=== PATIENT | female | born 1940 | race Caucasian/White ===

== ENCOUNTER 2017-01-26 09:16 | Inpatient (IN) | payer MEDICARE ==
[~2017-01-26] VITALS: Ht 154.9 cm; Wt 34.5 kg
[2017-01-26] MEDS ORDERED: SODIUM CHLORIDE FLUSH 10ML SYR IVF ONE (09:30)
[2017-01-26] MEDS ORDERED: SODIUM CHLORIDE 0.9% 1,000ML IVBOLUS ONE ×2 (09:30→11:30)
[2017-01-26] MEDS ORDERED: ALBUTEROL/IPRATROPIUM 2.5MG/0.5MG, 3 ML ONE ×2 (09:51→10:03)
[2017-01-26] MEDS: ALBUTEROL/IPRATROPIUM 2.5MG/0.5MG, 3 ML NPPB SCH ×4 (09:54→20:00)
[2017-01-26] MEDS: PLEASE ENTER ALLERGIES MC SCH ×2 (10:06)
[2017-01-26 10:08] LABS: ABG COLLECTION SITE RIGHT RADIAL; COLLATERAL CIRCULATION TESTING NORMAL
[2017-01-26 10:19] LABS: ASPARTATE AMINO TRANSFERASE 21 U/L (15-37); BLOOD UREA NITROGEN 22 mg/dL (7-18)
[2017-01-26 10:24] LABS: IS PT STATUS REG ER OR PRE ER? YES
[2017-01-26] MEDS ORDERED: ASPIRIN 81 MG TABLET CHEW ONE (10:42)
[2017-01-26] MEDS ORDERED: ASPIRIN 81 MG TABLET CHEW PO ONE (11:00)
[2017-01-26] MEDS ORDERED: ASPI-515 PO (11:15)
[2017-01-26] MEDS ORDERED: LIDOCAINE 1%, 20ML ONE (11:31)
[2017-01-26] MEDS ORDERED: SODIUM BICARBONATE 4.2%, 5ML ONE (11:31)
[2017-01-26] MEDS ORDERED: DEXTROSE 50%, 50ML SYRINGE ONE (11:48)
[2017-01-26] MEDS ORDERED: LEVOFLOXACIN/PMX 750MG/150ML 150 ML IV ONE (12:30)
[2017-01-26] MEDS ORDERED: LEVOFLOXACIN/PMX 750MG/150ML 150 ML ONE (12:41)
[2017-01-26] MEDS ORDERED: ONDANSETRON 2MG/ML, 2ML IVP PRN (13:30)
[2017-01-26] MEDS ORDERED: ACETAMINOPHEN 325 MG TABLET PO PRN (13:30)
[2017-01-26] MEDS ORDERED: POLYETHYLENE GLYCOL 17 GM PACKET PO PRN (13:30)
[2017-01-26 14:22] VITALS: BP 109/70
[2017-01-26] MEDS: FUROSEMIDE 40 MG/4 ML IV SCH (14:53)
[2017-01-26] MEDS ORDERED: ENOXAPARIN 40 MG/0.4 ML SQ SCH (15:00)
[2017-01-26 19:38] VITALS: BP 116/74
[2017-01-27 01:50] VITALS: BP 112/68
[2017-01-27 06:08] LABS: BLOOD UREA NITROGEN 25 mg/dL (7-18)
[2017-01-27 06:33] LABS: DIFF TOTAL CELLS COUNTED 100 CELL DIFF
[2017-01-27 06:38] LABS: VERIFY COUNTS? YES
[2017-01-27] MEDS: ALBUTEROL/IPRATROPIUM 2.5MG/0.5MG, 3 ML NPPB SCH ×4 (06:45→19:08)
[2017-01-27 07:15] VITALS: BP 94/56
[2017-01-27] MEDS: POTASSIUM CHLORIDE 20 MEQ TAB.ER.PRT PO SCH (09:05)
[2017-01-27] MEDS: FUROSEMIDE 40 MG/4 ML IV SCH (09:05)
[2017-01-27 13:27] VITALS: BP 99/56
[2017-01-27] MEDS ORDERED: OMNIPAQUE 350 MG/ML, 75ML BOTTLE ONE (15:04)
[2017-01-27] MEDS: ENOXAPARIN 30 MG/0.3 ML SQ SCH (15:44)
[2017-01-27] MEDS: FAMOTIDINE 20 MG TABLET PO SCH (20:16)
[2017-01-27 20:23] VITALS: BP 95/54
[2017-01-28 01:54] VITALS: BP 118/69
[2017-01-28 06:09] LABS: BLOOD UREA NITROGEN 22 mg/dL (7-18)
[2017-01-28] MEDS: ALBUTEROL/IPRATROPIUM 2.5MG/0.5MG, 3 ML NPPB SCH ×4 (06:45→21:24)
[2017-01-28 07:20] VITALS: BP 98/59
[2017-01-28] MEDS ORDERED: MAGNESIUM SULFATE PMX 2GM/50ML 50 ML IV ONE (07:30)
[2017-01-28] MEDS: FAMOTIDINE 20 MG TABLET PO SCH ×2 (08:00→20:49)
[2017-01-28] MEDS: FUROSEMIDE 40 MG/4 ML IV SCH (08:00)
[2017-01-28] MEDS: POTASSIUM CHLORIDE 20 MEQ TAB.ER.PRT PO SCH (08:00)
[2017-01-28 13:02] VITALS: BP 111/64
[2017-01-28] MEDS: ENOXAPARIN 30 MG/0.3 ML SQ SCH (15:30)
[2017-01-28 20:58] VITALS: BP 101/59
[2017-01-29 02:44] VITALS: BP 105/70
[2017-01-29 05:49] LABS: BLOOD UREA NITROGEN 30 mg/dL (7-18)
[2017-01-29] MEDS: ALBUTEROL/IPRATROPIUM 2.5MG/0.5MG, 3 ML NPPB SCH ×4 (07:27→19:25)
[2017-01-29 08:22] VITALS: BP 109/54
[2017-01-29] MEDS: FAMOTIDINE 20 MG TABLET PO SCH ×2 (09:18→22:12)
[2017-01-29] MEDS: POTASSIUM CHLORIDE 20 MEQ TAB.ER.PRT PO SCH (09:18)
[2017-01-29] MEDS: FUROSEMIDE 40 MG/4 ML IV SCH (09:19)
[2017-01-29 13:00] VITALS: BP 109/53
[2017-01-29] MEDS: ENOXAPARIN 30 MG/0.3 ML SQ SCH (16:36)
[2017-01-29 19:36] VITALS: BP 117/61
[2017-01-30 01:55] VITALS: BP 124/61
[2017-01-30 06:53] VITALS: BP 136/74
[2017-01-30] MEDS: ALBUTEROL/IPRATROPIUM 2.5MG/0.5MG, 3 ML NPPB SCH ×4 (08:48→20:00)
[2017-01-30] MEDS: POTASSIUM CHLORIDE 20 MEQ TAB.ER.PRT PO SCH (09:34)
[2017-01-30] MEDS: FAMOTIDINE 20 MG TABLET PO SCH ×2 (09:34→20:02)
[2017-01-30] MEDS: FUROSEMIDE 40 MG/4 ML IV SCH (09:34)
[2017-01-30 13:18] VITALS: BP 114/66
[2017-01-30] MEDS: ENOXAPARIN 30 MG/0.3 ML SQ SCH (15:05)
[2017-01-30 19:02] VITALS: BP 104/58
[2017-01-31 01:52] VITALS: BP 113/70
[2017-01-31 05:27] LABS: BLOOD UREA NITROGEN 30 mg/dL (7-18)
[2017-01-31] MEDS: ALBUTEROL/IPRATROPIUM 2.5MG/0.5MG, 3 ML NPPB SCH ×3 (07:00→20:54)
[2017-01-31 07:05] VITALS: BP 133/76
[2017-01-31] MEDS: FAMOTIDINE 20 MG TABLET PO SCH ×2 (09:40→20:00)
[2017-01-31] MEDS: POTASSIUM CHLORIDE 20 MEQ TAB.ER.PRT PO SCH (09:40)
[2017-01-31] MEDS: FUROSEMIDE 40 MG/4 ML IV SCH (09:41)
[2017-01-31 13:19] VITALS: BP 123/71
[2017-01-31] MEDS: ENOXAPARIN 30 MG/0.3 ML SQ SCH (16:26)
[2017-01-31 19:23] VITALS: BP 110/63
[2017-02-01 05:28] VITALS: BP 137/67
[2017-02-01 05:52] LABS: BLOOD UREA NITROGEN 34 mg/dL (7-18)
[2017-02-01 06:55] VITALS: BP 152/65
[2017-02-01] MEDS: ALBUTEROL/IPRATROPIUM 2.5MG/0.5MG, 3 ML NPPB SCH (07:55)
[2017-02-01] MEDS: FAMOTIDINE 20 MG TABLET PO SCH (08:44)
[2017-02-01] MEDS: FUROSEMIDE 40 MG/4 ML IV SCH ×2 (08:44→08:47)
[2017-02-01] MEDS: POTASSIUM CHLORIDE 20 MEQ TAB.ER.PRT PO SCH (08:44)
== END 2017-02-01 10:28 | disposition left against medical advice (07) | DRG 189 ==
LOC: ED 09:52 → EDIP 12:40 → 4WST 14:15 → 4EST 01-31 21:33
PROVIDERS: ADMIT Hospitalist; ATTEND Hospitalist
PROC: 0T9B70Z Drainage of Bladder with Drainage Device, Via Natural or Artificial Opening (ICD-10-PCS; principal; 2017-01-26)
PROC: 0W993ZZ Drainage of Right Pleural Cavity, Percutaneous Approach (ICD-10-PCS; 2017-01-26)
DX: J96.01 Acute respiratory failure with hypoxia (principal); E43 Unspecified severe protein-calorie malnutrition; J90 Pleural effusion, not elsewhere classified; J44.1 Chronic obstructive pulmonary disease with (acute) exacerbation; J98.11 Atelectasis; Z68.1 Body mass index [BMI] 19.9 or less, adult; I27.2 Other secondary pulmonary hypertension; I49.3 Ventricular premature depolarization; N28.9 Disorder of kidney and ureter, unspecified; N32.89 Other specified disorders of bladder; Z66 Do not resuscitate; Z72.0 Tobacco use; Z79.82 Long term (current) use of aspirin; Z88.0 Allergy status to penicillin
CPT/HCPCS: 32555; 36415; 36600; 71010; 71260; 76700; 80048; 80053; 81001; 82150; 82570; 82803; 82945; 83605; 83615; 83735; 83880; 83986; 84134; 84145; 84156; 84157; 84439; 84443; 84484; 85025; 87040; 87070; 87086; 87205; 89051; 93005; 93306; 94640; 96360; 96361; J1650; J1940; J1956; J3490; J7620; Q9967; J3475; J7030; J7512